=== PATIENT | female | born 1970 | race Caucasian/White ===

== ENCOUNTER 2018-08-27 14:13 | Emergency (ER) | payer SELFPAY ==
[~2018-08-27] VITALS: Wt 77.3 kg
[2018-08-27] MEDS ORDERED: SOD CHLORIDE 0.9% 500 ML IV STA (14:28)
[2018-08-27] MEDS ORDERED: LORAZEPAM 2 MG INJ IV ONE (14:30)
--- NOTE | 2018-08-27 14:56 | ERD ---
ER Documentation Chief Complaint Chief Complaint PT BIB AMBULANCE WITH C/O ANXIETY, NUMBNESS ON L ARM, JAW HPI This is a 47-year-old woman complaining of 2 days of posterior headache and scalp pain and paresthesias to the face and left upper extremity, about an hour prior to arrival she states she developed palpitations, sharp nonexertional nonradiating chest pain and weakness to the left arm. She denies any obvious precipitating or alleviating factors and denies prior similar episodes, no fevers or chills, no blurry vision no slurred speech, no abdominal pain, no vomiting or diarrhea. Patient has no history of [place] or stroke or personal or family history of early CAD. ROS All systems reviewed and are negative except as per history of present illness. Medications Home Meds Active Scripts Alprazolam* (Xanax*) 0.5 Mg Tab, 0.5 MG PO TID PRN for MUSCLE SPASMS, #12 TAB Prov:LENA NEFF MD 08/27/18 Ibuprofen* (Motrin*) 600 Mg Tab, 600 MG PO Q8 PRN for PAIN AND/OR INFLAMMATION, #30 TAB Prov:LENA NEFF MD 08/27/18 Allergies Allergies: Coded Allergies: No Known Allergy (Unverified , 08/27/18) PMhx/Soc History of Surgery: Yes () Anesthesia Reaction: No Hx Neurological Disorder: Yes (BELLS PALSY) Hx Respiratory Disorders: No Hx Cardiac Disorders: No Hx Psychiatric Problems: No Hx Miscellaneous Medical Probl: No Hx Alcohol Use: No Hx Substance Use: No Hx Tobacco Use: No Smoking Status: Never smoker FmHx Family History: No diabetes Physical Exam Vitals Vital Signs Date Temp Pulse Resp B/P (MAP) Pulse Ox O2 O2 Flow FiO2 Time Delivery Rate 08/27/18 98.5 63 17 125/61 100 Room Air 16:13 (82) 08/27/18 98.2 66 16 127/42 100 Room Air 14:25 (70) 08/27/18 98.2 66 19 127/42 100 14:22 (70) Physical Exam GENERAL: Well-developed, well-nourished, well-hydrated, febrile, appears anxious HEENT: Moist mucous membranes, pink conjunctiva, no cervical spine tenderness or step-off deformities, no goiter, no jaundice or icterus, extraocular movements intact without pain. No submandibular induration, and no pharyngeal erythema NEURO: Alert and oriented 3, cranial nerves II through XII intact bilaterally, pupils equal round reactive to light, no focal deficits or facial asymmetry. 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 SKIN: Warm and dry to touch, no abrasions, contusions, or hematomas, no lacerations, no ecchymosis, no target lesions, and without ulcers EXTREMITIES: No clubbing cyanosis or edema, calves are bilaterally symmetrical, no Homans sign, no popliteal cord sign. Distal pulses equal and bilateral PSYCH: Anxious appearing Result Diagram: 08/27/18 1433 08/27/18 1433 Results 24 hrs Laboratory Tests Test 08/27/18 14:33 08/27/18 14:45 08/27/18 14:54 White Blood Count 14.2 10^3/ul Red Blood Count 5.01 10^6/ul Hemoglobin 12.0 g/dl Hematocrit 38.1 % Mean Corpuscular Volume 76.0 fl Mean Corpuscular Hemoglobin 24.0 pg Mean Corpuscular 31.5 g/dl Hemoglobin Concent Red Cell Distribution Width 15.4 % Platelet Count 384 10^3/UL Mean Platelet Volume 9.9 fl Immature Granulocytes % 0.500 % Neutrophils % 60.8 % Lymphocytes % 29.9 % Monocytes % 6.6 % Eosinophils % 1.8 % Basophils % 0.4 % Nucleated Red Blood Cells % 0.0 /100WBC Immature Granulocytes # 0.070 10^3/ul Neutrophils # 8.6 10^3/ul Lymphocytes # 4.2 10^3/ul Monocytes # 0.9 10^3/ul Eosinophils # 0.3 10^3/ul Basophils # 0.1 10^3/ul Nucleated Red Blood Cells # 0.0 10^3/ul Sodium Level 139 mmol/L Potassium Level 3.8 mmol/L Chloride Level 102 mmol/L Carbon Dioxide Level 26 mmol/L Anion Gap 11 Blood Urea Nitrogen 13 mg/dl Creatinine 0.52 mg/dl Est Glomerular Filtrat > 60 mL/min Rate mL/min Glucose Level 124 mg/dl Calcium Level 9.7 mg/dl Total Bilirubin 0.5 mg/dl Direct Bilirubin 0.00 mg/dl Indirect Bilirubin 0.5 mg/dl Aspartate Amino Transf (AST/SGOT) 21 IU/L Alanine 22 IU/L Aminotransferase (ALT/SGPT) Alkaline Phosphatase 108 IU/L Troponin I < 0.012 ng/ml Total Protein 8.6 g/dl Albumin 4.6 g/dl Globulin 4.00 g/dl Albumin/Globulin Ratio 1.15 Lipase 54 U/L Urine Color YELLOW Urine Clarity CLOUDY Urine pH 7.0 Urine Specific Reading 1.009 Urine Ketones 1+ mg/dL Urine Nitrite NEGATIVE mg/dL Urine Bilirubin NEGATIVE mg/dL Urine Urobilinogen NEGATIVE mg/dL Urine Leukocyte Esterase NEGATIVE Saige/ul Urine Microscopic RBC 0 /HPF Urine Microscopic WBC 0 /HPF Urine Squamous Epithelial Cells MODERATE /HPF Urine Bacteria FEW /HPF Urine Hemoglobin NEGATIVE mg/dL Urine Glucose NEGATIVE mg/dL Urine Total Protein NEGATIVE mg/dl POC Beta HCG, Qualitative NEGATIVE Current Medications Medications Dose Sig/Prema Start Time Status Last (Trade) Ordered Route PRN Stop Time Admin Dose Reason Admin Sodium 500 ml @ Q1H STAT 08/27/18 DC 08/27/18 Chloride 500 mls/hr IV 14:28 08/27/18 14:44 15:27 Lorazepam 0.5 mg ONCE ONCE 08/27/18 DC 08/27/18 (Ativan) IV 14:30 08/27/18 14:43 14:31 Procedures/MDM IV line was established patient was placed on cardiac cath lab radiology technologist rhythm strip re vealed a sinus rhythm at about 60 bpm with upright P and T waves. Patient was afebrile EKG performed, read by me: 64 bpm, normal sinus rhythm, normal axis, no acute ST segment changes, narrow QRS complex, with good R-wave progression in precordial leads. Chest X-ray 1V Interpreted by me: Soft Tissue: No acute abnormalities Bones: No acute abnormalities Mediastinum/Cardiac Silhouette/Lungs: No acute abnormalities CT scan of the head was negative for acute bleed mass or shift I administered 500 cc normal saline IV and lorazepam 0.5 mg IV x1 CBC and electrolytes are normal, liver function tests normal, troponin negative, urinalysis negative for infection Patient symptoms improved she states the paresthesias improved to the left upper extremity and her pains have resolved I repeated a neurologic exam and remains normal she has no deficits on examination. Differential diagnoses considered, included but not limited to acute coronary syndrome, pulmonary embolism, aortic dissection, abdominal aortic aneurysm, sepsis, stroke, meningitis, encephalitis, pneumonia, appendicitis, cholecystitis, bowel obstruction, pyelonephritis, nephrolithiasis, cystitis, as well as metabolic, hematologic, and electrolyte abnormalities. As well as abscess, cellulitis, fractures, and dislocations. Patient feels much better at this time, and vital signs are normal, symptoms have improved. I did give strict instructions to return to the ED if symptoms continue or worsen, patient will otherwise follow-up with primary care physician. Patient understood instructions and agreed to plan. Disclaimer: Inadvertent spelling and grammatical errors are likely due to EHR/dictation software use and do not reflect on the overall quality of patient care. Also, please note that the electronic time recorded on this note does not necessarily reflect the actual time of the patient encounter. Departure Diagnosis: Primary Impression: Paresthesias Additional Impressions: Headache Headache type: tension-type Headache chronicity pattern: acute headache Intractability: not intractable Qualified Codes: G44.209 - Tension-type headache, unspecified, not intractable Chest pain Chest pain type: unspecified Qualified Codes: R07.9 - Chest pain, unspecified Condition: LENA Abarca MD August 27, 2018 14:56
[2018-08-27] MEDS ORDERED: ALPR0.5T PO (15:56)
[2018-08-27] MEDS ORDERED: IBUP-1542 PO (15:56)
[2018-08-27 16:13] VITALS: BP 125/61; PULSE 63; RESP 17
== END 2018-08-27 16:15 | disposition home or self-care (01) ==
LOC: E/R 14:13
DX: R20.2 Paresthesia of skin (principal); G44.209 Tension-type headache, unspecified, not intractable; R07.9 Chest pain, unspecified; R40.2142 Coma scale, eyes open, spontaneous, at arrival to emergency department; R40.2362 Coma scale, best motor response, obeys commands, at arrival to emergency department; R40.2252 Coma scale, best verbal response, oriented, at arrival to emergency department
CPT/HCPCS: 36415; 70450; 80053; 81001; 81025; 83690; 84484; 85025; 93005; 96374; 99285; J2060; J7040